=== PATIENT | male | born 1960 | race Caucasian/White ===

== ENCOUNTER 2021-06-08 14:06 | Outpatient (CLI) | payer OTHER, SELFPAY ==
--- NOTE | ~2021-06-08 | US_ITS ---
EXAMINATION: US renal BI DATE: 06/08/2021 15:15 INDICATION: Stage II chronic kidney disease TECHNIQUE: Multiple ultrasound grayscale images of the kidneys were obtained. COMPARISON: None. FINDINGS: The right kidney measures 11.1 x 4.6 x 6.1 cm. The left kidney measures 12.2 x 4.3 x 6.7 cm. The kidn eys demonstrate normal echogenicity. There is no hydronephrosis in either kidney. No stones identifi ed. The bladder is normal. IMPRESSION: 1. Normal kidneys without hydronephrosis. Reviewed, dictated and finalized at location B. LINE SUPERVISOR
== END 2021-06-08 14:07 | disposition home or self-care (01) ==
PROVIDERS: PCP Internal Medicine Gastroenterology; Visit Provider Internal Medicine Nephrology
DX: I12.9 Hypertensive chronic kidney disease with stage 1 through stage 4 chronic kidney disease, or unspecified chronic kidney disease (principal); N18.2 Chronic kidney disease, stage 2 (mild); E11.22 Type 2 diabetes mellitus with diabetic chronic kidney disease; E78.00 Pure hypercholesterolemia, unspecified
CPT/HCPCS: 76775

== ENCOUNTER 2021-09-11 13:49 | Outpatient (CLI) | payer OTHER, SELFPAY ==
[2021-09-11 14:44] LABS: Alanine Aminotransferase 26 U/L (4-50); Albumin Level 4.3 g/dL (3.5-5.1); Alkaline Phosphatase 54 U/L (38-126); Anion Gap 10 mmol/L (8-16); Aspartate Amino Transferase 28 U/L (17-59); Bilirubin,Total 0.5 mg/dL (0.2-1.3); Blood Urea Nitrogen 12 mg/dL (9-20); Calcium 8.7 mg/dL (8.4-10.2); Carbon Dioxide 23 mmol/L (22-30); Chloride 102 mmol/L (98-107); Cholesterol 229 mg/dL (0-200); Estimated Glomerular Filt Rate > 60; Glucose 119 mg/dL (65-110); HDL Direct 37 mg/dL; Sodium 135 mmol/L (137-145); Triglycerides 261 mg/dL (<150)
[2021-09-11 14:55] LABS: LDL Cholesterol Direct 145 mg/dL
[2021-09-11 15:09] LABS: Creatinine Urine 135.4 mg/dL
[2021-09-11 15:24] LABS: Free T4 Free Thyroxine 0.91 ng/mL (0.78-2.19)
[2021-09-11 15:46] LABS: Microalbumin Urine Random > 1140.0 mg/L (0-16.7)
[2021-09-11 16:08] LABS: Hemoglobin A1C 5.9 % (<5.7)
== END 2021-09-11 13:50 | disposition home or self-care (01) ==
LOC: ANHLAB 13:52
PROVIDERS: PCP Internal Medicine Gastroenterology; Visit Provider Internal Medicine Endocrinology, Diabetes & Metabolism
DX: E11.65 Type 2 diabetes mellitus with hyperglycemia (principal); E78.5 Hyperlipidemia, unspecified
CPT/HCPCS: 36415; 80053; 80061; 82043; 83036; 84439; 84443

== ENCOUNTER 2022-02-27 15:06 | Emergency (ER) | payer OTHER, SELFPAY ==
[2022-02-27 15:17] VITALS: BP 126/82; PULSE 69; RESP 16; TEMP 36.3; O2SAT 99
[2022-02-27 15:19] VITALS: BP 126/82; PULSE 69; RESP 16; TEMP 36.3; O2SAT 99
--- NOTE | 2022-02-27 15:28 | ED.SKABFB ---
HPI - Skin/Abscess/Foreign Bdy General Chief complaint: Skin/Abscess/Foreign Body Stated complaint: rash Time Seen by Provider: 02/27/22 15:25 Source: patient Mode of arrival: ambulatory Limitations: no limitations History of Present Illness HPI narrative: Mr. Dixon is a 61-year-old male patient presenting to the clinic today with complaints of a rash to the left side of his lower abdomen. He reports that the rash that is itchy and wiped out. He denies any pain or discomfort at this time Related Data Home Medications Medication Instructions Recorded Confirmed amlodipine 5 mg tablet mg 02/27/22 aspirin 81 mg chewable tablet 02/27/22 dapagliflozin 10 mg tablet mg 02/27/22 (Farxiga) ergocalciferol (vitamin D2) 1,250 02/27/22 mcg (50,000 unit) capsule fenofibrate 160 mg tablet mg 02/27/22 liraglutide 0.6 mg/0.1 mL (18 mg/3 mg subcut 02/27/22 mL) subcutaneous pen injector (VC VISIONtoza 3-Fred) metformin 500 mg tablet,extended mg PO 02/27/22 release 24 hr rosuvastatin 20 mg tablet mg 02/27/22 sertraline 100 mg tablet mg 02/27/22 valsartan 320 mg tablet mg 02/27/22 Allergies Allergy/AdvReac Type Severity Reaction Status Date / Time No Known Allergies Allergy Mild Verified 02/27/22 15:18 Review of Systems Review of Systems: Pertinent positives per HPI. Patient denies any fever, chills, headache, visual changes, dizziness, cough, runny nose, sore throat, shortness of breath, chest pain, palpitations, nausea, vomiting, diarrhea, constipation, abdominal pain, or any urinary issues. [facility] Family History Family History Grandparent Hypertension Family history of heart disease in male family member before age 55 Mother Hypertension Family history of diabetes mellitus in first degree relative Father Family history of diabetes mellitus in first degree relative Social History Social History Smoking status: Never smoker Alcohol intake: never Comments At the time of my signature, I reviewed and agree with the nursing past medical, surgical, social, and family history. There is no relevant family history pertinent to the patient complaint. Exam Narrative: General: Well-developed, well nourished, in no apparent distress Head: Normocephalic, atraumatic. Cardio: Regular rate and rhythm, s1 and s2 normal, no murmur appreciated. Resp: Clear to auscultation bilaterally, no rhonchi, rales, wheezing or rubs. Integumentary: [place], warm, and dry, intact without lesion, red whelps itchy rash in the shape of his belt Course Course Emergency Course: Portions of this record may have been created with voice recognition software. Level of Care: Express Care Visit Vital Signs Vital signs: Vital Signs Temperature 36.3 C L 02/27/22 15:17 Pulse Rate 69 02/27/22 15:17 Respiratory Rate 16 02/27/22 15:17 Blood Pressure 126/82 02/27/22 15:17 Pulse Oximetry 99 02/27/22 15:17 Oxygen Delivery Room Air 02/27/22 15:17 Temperature 36.3 C L 02/27/22 15:19 Pulse Rate 69 02/27/22 15:19 Respiratory Rate 16 02/27/22 15:19 Blood Pressure 126/82 02/27/22 15:19 Pulse Oximetry 99 02/27/22 15:19 Oxygen Delivery Room Air 02/27/22 15:19 Vital signs reviewed MDM - Skin/Abscess/Foreign Bdy MDM Narrative Medical decision making narrative: At the time of visit patient is resting comfortably on the exam table. I suspect patient has contact dermatitis. Discussed supportive measures using Benadryl and hydrocortisone cream and patient agrees with the treatment plan and voiced understanding of discharge instructions. Differential Diagnosis Differential diagnosis: Likely abscess of skin or subcutaneous tissue, herpes zoster, eczema and contact dermatitis Discharge Plan Discharge Clinical Impression: Contact dermatitis Patient Disposition: Home, Self-Care
== END 2022-02-27 15:36 | disposition home or self-care (01) ==
PROVIDERS: Emergency Provider Nurse Practitioner Family; PCP Physician Assistant
DX: L25.9 Unspecified contact dermatitis, unspecified cause (principal); Z79.82 Long term (current) use of aspirin
CPT/HCPCS: 99211; G0463

== ENCOUNTER 2022-03-08 15:07 | Emergency (ER) | payer OTHER, SELFPAY ==
[2022-03-08 15:16] VITALS: BP 103/83; PULSE 64; RESP 16; TEMP 36.6; O2SAT 98
--- NOTE | 2022-03-08 15:23 | ED.SKABFB ---
HPI - Skin/Abscess/Foreign Bdy General Chief complaint: Skin/Abscess/Foreign Body Stated complaint: Right Arm Pain Time Seen by Provider: 03/08/22 15:23 Source: patient, RN notes reviewed and old records reviewed Mode of arrival: ambulatory Limitations: no limitations History of Present Illness HPI narrative: 61-year-old male presents to the [facility] with right arm discomfort after receiving his tetanus shot on 04 March, 4 days ago. Was concerned that he was having an allergic reaction. Related Data Home Medications Medication Instructions Recorded Confirmed amlodipine 5 mg tablet mg 02/27/22 aspirin 81 mg chewable tablet 02/27/22 dapagliflozin 10 mg tablet mg 02/27/22 (Farxiga) ergocalciferol (vitamin D2) 1,250 02/27/22 mcg (50,000 unit) capsule fenofibrate 160 mg tablet mg 02/27/22 liraglutide 0.6 mg/0.1 mL (18 mg/3 mg subcut 02/27/22 mL) subcutaneous pen injector (Victoza 3-Fred) metformin 500 mg tablet,extended mg PO 02/27/22 release 24 hr rosuvastatin 20 mg tablet mg 02/27/22 sertraline 100 mg tablet mg 02/27/22 valsartan 320 mg tablet mg 02/27/22 Allergies Allergy/AdvReac Type Severity Reaction Status Date / Time No Known Allergies Allergy Mild Verified 02/27/22 15:18 Review of Systems Review of Systems: All systems reviewed & are unremarkable except as noted in HPI and below Constitutional: Constitutional: Reports no additional constitutional complaints, Denies chills and Denies fever(s) Eyes: Eyes: Reports no additional eye complaints ENT: Reports system reviewed and no additional complaints, except as documented Cardiovascular: Cardiovascular: Reports no additional cardiovascular complaints Respiratory: Respiratory: Reports no additional respiratory complaints Gastrointestinal: Gastrointestinal: Reports no additional gastrointestinal complaints Musculoskeletal: Musculoskeletal: Reports as per HPI Integumentary/Breasts: Skin/Breast: Reports system reviewed and no additional complaints, except as docu Neurologic: Reports system reviewed and no additional complaints, except as documented Psychiatric: Psychiatric: Reports no additional psychiatric complaints Allergic/Immunologic: Allergic/Immunologic: Reports no additional allergic/immunologic complaints PMFSH Family History Family History Grandparent Hypertension Family history of heart disease in male family member before age 55 Mother Hypertension Family history of diabetes mellitus in first degree relative Father Family history of diabetes mellitus in first degree relative Social History Social History Smoking status: Never smoker Alcohol intake: never Comments At the time of my signature, I reviewed and agree with the nursing past medical, surgical, social, and family history. There is no relevant family history pertinent to the patient complaint. Exam Const: General: healthy appearing, no acute distress, alert and well nourished Nutritional Appearance: well nourished Orientation/consciousness: patient oriented x3 Limitations: no limitations HENMT: Head: normal to inspection Ears: external ears normal Eyes: General: appearance normal, both eyes and all related structures Pupils: Equal, round and reactive pupils present Neck: Neck: normal visual inspection, no lymphadenopathy and no meningeal signs Chest: Chest palpation & inspection: normal inspection of the chest Resp: Effort & Inspection: normal respiratory effort and no use of accessory muscles Auscultation: clear to auscultation bilaterally, no crackles, no rales, no rhonchi and no wheezes Cardio: Rate: regular rate Rhythm: regular rhythm Skin: General skin exam: normal color Rashes: no rashes Wounds: no wounds Neuro: General: patient oriented x3, moves all extremities, no meningeal signs and no focal motor deficits C
== END 2022-03-08 15:36 | disposition home or self-care (01) ==
PROVIDERS: Emergency Provider Nurse Practitioner; PCP Physician Assistant
DX: Z04.89 Encounter for examination and observation for other specified reasons (principal); E78.00 Pure hypercholesterolemia, unspecified; I10 Essential (primary) hypertension; E11.9 Type 2 diabetes mellitus without complications
CPT/HCPCS: 99211; G0463

== ENCOUNTER 2022-03-19 12:08 | Outpatient (CLI) | payer OTHER, SELFPAY ==
--- NOTE | ~2022-03-19 | XR_ITS ---
EXAM: XR_CERV2-3V_CR DATE: 03/19/2022 12:29 HISTORY: PAIN IN RT HIP JOINT, NECK PAIN . COMPARISON: 04/23/2007. FINDINGS: Craniocervical association and atlantoaxial joint are aligned. No prevertebral soft tissue swelling. Vertebral bodies are aligned. Vertebral body heights are maintained. Mild C4-5 and moderat e C5-6 and C6-7 disc space narrowing and marginal osteophytosis. Multilevel mild facet sclerosis and hypertrophy. IMPRESSION: Mild and moderate degenerative disc disease in the mid and lower cervical spine. Multilev el mild facet arthropathy. Reviewed, dictated and finalized at location K. IMPRESSION: Mild and moderate degenerative disc disease in the mid and lower ce rvical spine. Multilevel mild facet arthropathy.
--- NOTE | ~2022-03-19 | XR_ITS ---
EXAMINATION: XR hip RT min 2V DATE: 03/19/2022 12:29 INDICATION: Right hip pain. TECHNIQUE: 2 views of right hip were obtained. COMPARISON: None. FINDINGS: Bone alignment is normal. No fracture. There is moderate right hip osteoarthritis. IMPRESSION: 1. Moderate right hip osteoarthritis. Reviewed, dictated and finalized at location A.
== END 2022-03-19 12:09 | disposition home or self-care (01) ==
PROVIDERS: PCP Physician Assistant; Visit Provider Physician Assistant
DX: M50.30 Other cervical disc degeneration, unspecified cervical region (principal); M16.11 Unilateral primary osteoarthritis, right hip
CPT/HCPCS: 72040; 73502

== ENCOUNTER 2022-04-11 01:30 | Day surgery (SDC) | payer OTHER, SELFPAY ==
[2022-04-05 14:19] VITALS: BMI 35.9
--- NOTE | 2022-04-10 14:45 | PM.HPGS ---
History of Present Illness History of Present Illness Consent: Risks, benefits, and alternatives have been discussed and questions answered. Patient agrees to proceed with procedure. Chief complaint: dysphagia, rectal bleeding Narrative: Vladimir José is a 62 year old male Referred for investigation of dysphagia. He has had the sensation of meat and breads getting caught in the area of the suprasternal notch. This has been going on for least a year, maybe longer, and now occurs once or twice a weekDrinking water may help the past. He denies weight loss. He also has seen blood in his stools recently. is generally bright red. This has been going on for a year or 2. He had had a digital rectal exam that was said to be normal. Review of Systems Review of Systems: All systems reviewed & are unremarkable except as noted in HPI and below PMFSH Past Medical History Medical History BRBPR (bright red blood per rectum) GERD (gastroesophageal reflux disease) Hypertension Obesity (BMI 30-39.9) Family History Family History Grandparent Hypertension Family history of heart disease in male family member before age 55 Mother Hypertension Family history of diabetes mellitus in first degree relative Father Family history of diabetes mellitus in first degree relative Social History Social History Smoking status: Never smoker Alcohol intake: never Living arrangements: alone Spiritual care concerns: No Meds Home Medications and Allergies Home Medications Medication Instructions Recorded Confirmed Type amlodipine 5 mg tablet 5 mg PO DAILY 02/27/22 04/05/22 History aspirin 81 mg chewable tablet 81 mg PO DAILY 02/27/22 04/05/22 History dapagliflozin 10 mg tablet 10 mg PO DAILY 02/27/22 04/05/22 History (Farxiga) ergocalciferol (vitamin D2) 1,250 50,000 unit PO DAILY 02/27/22 04/05/22 History mcg (50,000 unit) capsule fenofibrate 160 mg tablet 160 mg PO DAILY 02/27/22 04/05/22 History liraglutide 0.6 mg/0.1 mL (18 mg/3 0.6 mg subcut DAILY 02/27/22 04/05/22 History mL) subcutaneous pen injector (Victoza 3-Fred) metformin 500 mg tablet,extended 500 mg PO DAILY 02/27/22 04/05/22 History release 24 hr rosuvastatin 20 mg tablet 20 mg PO DAILY 02/27/22 04/11/22 History sertraline 100 mg tablet 200 mg PO DAILY 02/27/22 04/05/22 History valsartan 320 mg tablet 320 mg PO DAILY 02/27/22 04/05/22 History omeprazole 40 mg capsule,delayed 40 mg PO DAILY #30 caps 03/21/22 04/05/22 Rx release bupropion HCl 150 mg tablet,12 hr 150 mg PO BID 04/05/22 04/05/22 History sustained-release Allergies Allergy/AdvReac Type Severity Reaction Status Date / Time No Known Allergies Allergy Mild Verified 04/11/22 11:06 Exam Const: General: alert Orientation/consciousness: patient oriented x3 Resp: Auscultation: clear to auscultation bilaterally Cardio: Rhythm: regular rhythm GI: GI Palp: Yes Soft to palpation and No Tenderness to palpation present (GI) Neuro: General: patient oriented x3 Assessment and Plan Assessment and plan (1) Dysphagia: Code(s): R13.10 - Dysphagia, unspecified Status: Acute Assessment and Plan: EGD with possible biopsy or dilatation or cautery. (2) Blood in stool: Code(s): K92.1 - Melena Status: Acute Assessment and Plan: Colonoscopy with possible biopsy or polypectomy or cautery or injection of substances.
[2022-04-11 11:07] VITALS: BP 143/91; PULSE 60; RESP 20; TEMP 36.7; O2SAT 98
[2022-04-11] MEDS: LACTATED RINGERS 1,000 ML 150 ML IV CONT (11:18)
--- NOTE | 2022-04-11 11:30 | WPDANESEPPF ---
Anes - Initial Pre Proc Eval Procedure: Operation Date: 04/11/22 12:30 Proposed Procedures p Esophagogastroduodenoscopy & Colonoscopy - Francisco Javier Hankins MD Date/Time: 04/11/22 11:30 Surgeon: Francisco Javier Hankins MD Pre Op Diagnosis: dysphagia, rectal bleeding Patient Data Age: 62 Gender: M Height: 1.73 m Weight: 106.2 kg Last Vital Signs Temp 98.0 F 04/11/22 11:07 Pulse 60 04/11/22 11:07 Resp 20 04/11/22 11:07 BP 143/91 H 04/11/22 11:07 Pulse Ox 98 04/11/22 11:07 O2 Del Method Room Air 04/11/22 11:07 Allergies Allergy/AdvReac Type Severity Reaction Status Date / Time No Known Allergies Allergy Mild Verified 04/11/22 11:06 Home Medications Medication Instructions Recorded Confirmed Type amlodipine 5 mg tablet 5 mg PO DAILY 02/27/22 04/05/22 History aspirin 81 mg chewable tablet 81 mg PO DAILY 02/27/22 04/05/22 History dapagliflozin 10 mg tablet 10 mg PO DAILY 02/27/22 04/05/22 History (Farxiga) ergocalciferol (vitamin D2) 1,250 50,000 unit PO DAILY 02/27/22 04/05/22 History mcg (50,000 unit) capsule fenofibrate 160 mg tablet 160 mg PO DAILY 02/27/22 04/05/22 History liraglutide 0.6 mg/0.1 mL (18 mg/3 0.6 mg subcut DAILY 02/27/22 04/05/22 History mL) subcutaneous pen injector (Victoza 3-Fred) metformin 500 mg tablet,extended 500 mg PO DAILY 02/27/22 04/05/22 History release 24 hr rosuvastatin 20 mg tablet mg 02/27/22 03/21/22 History sertraline 100 mg tablet 200 mg PO DAILY 02/27/22 04/05/22 History valsartan 320 mg tablet 320 mg PO DAILY 02/27/22 04/05/22 History omeprazole 40 mg capsule,delayed 40 mg PO DAILY #30 caps 03/21/22 04/05/22 Rx release bupropion HCl 150 mg tablet,12 hr 150 mg PO BID 04/05/22 04/05/22 History sustained-release Patient hx anesthesia problems: none Family hx anesthesia problems: none Results Review: All pre-operative results and documents have been reviewed as part of the pre-operative evaluation. [facility] Past Medical History Medical History (Updated 04/10/22 @ 14:46 by Francisco Javier Hankins MD) BRBPR (bright red blood per rectum) GERD (gastroesophageal reflux disease) Hypertension Obesity (BMI 30-39.9) Family History Family History Grandparent Hypertension Family history of heart disease in male family member before age 55 Mother Hypertension Family history of diabetes mellitus in first degree relative Father Family history of diabetes mellitus in first degree relative Social History Social History Smoking status: Never smoker Alcohol intake: never Living arrangements: alone Spiritual care concerns: No Anes - Eval Final PreProcedure Day of Procedure 04/11/22 11:30 Patient weight: obese Heart: regular rate and rhythm Lungs: clear to auscultation Airway: Mallampati scale class II Neurological: alert and oriented Last oral intake: >/= 8 hours ASA classification: III Emergent: no Anesthetic plan: proceed Anesthesia type and monitoring: general GIVS and standard monitoring Results Review: All pre-operative results and documents have been reviewed as part of the pre-operative evaluation. Informed Consent: The patient's anesthetic plan and its attendant risks and benefits were discussed with the patient/family/POA. Questions were solicited and answers provided to the satisfaction of the patient/family/POA.
[2022-04-11 11:32] LABS: Glucose Point of Care 131 mg/dl (65-105)
[2022-04-11] MEDS: BENZOCAINE (*SP) 60 ML SPRAY CAN (HURRICAINE) 1 SPRAY MUCOUS MEM (12:12)
--- NOTE | 2022-04-11 12:29 | SUR.OPER ---
EGD end 1221 COLONOSCOPY start 1231
[2022-04-11 12:48] VITALS: BP 112/75; PULSE 66; RESP 17; O2SAT 99
[2022-04-11 12:58] VITALS: BP 134/91; PULSE 64; RESP 14; O2SAT 98
[2022-04-11 13:08] VITALS: BP 141/85; PULSE 65; RESP 16; O2SAT 96
--- NOTE | 2022-04-11 13:20 | SUR.PHASEII ---
pt awaiting med car for transportation. ETA 3pm. call light within reach.
--- NOTE | 2022-04-11 13:51 | SUR.PHASEII ---
pt states his sister is now going to pick him up in the next hour.
== END 2022-04-11 14:23 | disposition home or self-care (01) ==
PROVIDERS: PCP Physician Assistant; Visit Provider Internal Medicine Gastroenterology
PROC: 0DJ08ZZ Inspection of Upper Intestinal Tract, Via Natural or Artificial Opening Endoscopic (ICD-10-PCS; CPT 43235; principal; 2022-04-11 12:30)
DX: K62.5 Hemorrhage of anus and rectum (principal); K64.8 Other hemorrhoids; K22.2 Esophageal obstruction; K20.0 Eosinophilic esophagitis; Z79.82 Long term (current) use of aspirin; Z79.899 Other long term (current) drug therapy; Z79.84 Long term (current) use of oral hypoglycemic drugs; I10 Essential (primary) hypertension; E66.9 Obesity, unspecified; Z68.35 Body mass index [BMI] 35.0-35.9, adult
CPT/HCPCS: 45378; 43239; 43249; 82948; 87081; 88305; C1726; J2704; J7120

== ENCOUNTER 2022-06-11 09:48 | Outpatient (CLI) | payer OTHER, SELFPAY ==
[2022-06-11 10:29] LABS: Hematocrit 41.4 % (42.0-52.0); Hemoglobin 14.3 g/dL (14.0-18.0); Mean Corpuscular HGB Conc 34.5 g/dl (32-36); Mean Corpuscular Hemoglobin 28.9 pg (26-34); Mean Corpuscular Volume 83.8 fl (80-100); Mean Platelet Volume 10.4 fl (7.4-10.4); Platelet Count Result 287 k/mm3 (150-375); Red Blood Count 4.94 M/mm3 (4.6-6.20); Red Cell Distribution Width 13.2 % (11.5-14.5); White Blood Count 11.5 K/mm3 (4.5-10.0)
[2022-06-11 10:36] LABS: Add Urine Microscopic? YES; Appearance Urine Clear (Clear); Bilirubin Urine Negative (Negative); Blood Urine Negative (Negative); Color Urine Yellow (Yellow); Glucose Urine UA 3+ mg/dL (Negative); Ketones Urine Negative (Negative); Leukocyte Esterase Ur Negative LEU/UL (NEGATIVE); Nitrate Urine Negative (Negative); Protein Urine 1+ mg/dL (Negative); Urobilinogen Urine 0.2 mg/dL (<2.0)
[2022-06-11 10:38] LABS: Albumin Level 4.6 g/dL (3.5-5.1); Anion Gap 10 mmol/L (8-16); Blood Urea Nitrogen 24 mg/dL (9-20); Calcium 9.2 mg/dL (8.4-10.2); Carbon Dioxide 24 mmol/L (22-30); Chloride 105 mmol/L (98-107); Estimated Glomerular Filt Rate 52; Glucose 115 mg/dL (65-110); Magnesium 1.8 mg/dL (1.6-2.3); Phosphorus 3.7 mg/dL (2.5-4.5); Potassium 3.7 mmol/L (3.4-5.0); Sodium 139 mmol/L (137-145)
[2022-06-11 10:40] LABS: Mucus Urine Rare /lpf; RBC Urine 0-2 /hpf (0-2); Squamous Epithelial Cell Urine Rare /hpf (Few); WBC Urine 0-3 /hpf (0-3)
[2022-06-11 11:25] LABS: Vitamin D 25 Hydroxy 27.3 ng/mL
[2022-06-11 11:32] LABS: Creatinine Urine 113.6 mg/dL; Total Protein Urine Random 50 mg/dL; Ur Ttl Prot Creatinine Ratio 0.44 mg/mg (0-0.20)
[2022-06-11 12:14] LABS: MALB Creatinine Ratio 251.5 mg/g (0-30); Microalbumin Urine Random 285.7 mg/L (0-16.7)
== END 2022-06-11 09:49 | disposition home or self-care (01) ==
LOC: ANHLAB 09:54
PROVIDERS: PCP Physician Assistant; Visit Provider Internal Medicine Nephrology
DX: R80.1 Persistent proteinuria, unspecified (principal); I12.9 Hypertensive chronic kidney disease with stage 1 through stage 4 chronic kidney disease, or unspecified chronic kidney disease; N18.2 Chronic kidney disease, stage 2 (mild); E11.22 Type 2 diabetes mellitus with diabetic chronic kidney disease; E78.00 Pure hypercholesterolemia, unspecified
CPT/HCPCS: 36415; 80069; 81001; 82043; 82306; 82570; 83735; 83970; 84156; 85027

== ENCOUNTER 2022-06-28 12:30 | Outpatient (RCR) | payer OTHER, SELFPAY ==
--- NOTE | 2022-06-14 10:08 | PTOPEVAL1 ---
Assessment and note entered by Audra Lindsay DPT Evaluation Information Assessment Status Evaluation Subjective Information Pt reports right hip pain. Having trouble putting his shoes on. Highest pain recently 5/10 and lowest 1/10. Walking a prolonged distance will increase pain as well as lifting his leg like to get dressed. Has stairs at his apartment but has an option to use an elevator. Had an x-ray which showed arthritis. No appointment scheduled to return to the MD Reported Pain Level Pain Score 1: Self Report Assessment PT Clinical Summary The patient is presenting to skilled therapy with right hip pain and a diagnosis of osteoarthritis. He presents with strength impairments which are contributing to his pain with activities like prolonged walking and lifting his leg up for dressing. He will benefit from therapy to address these impairments and safely reduce pain and dysfunction. Plan of Care Interventions Electrical Stimulation,Hot Pack/Cold Pack,Manual Therapy,Neuro Re-education,Patient/Caregiver Education,Therapeutic Activities,Therapeutic Exercise,Self-Care/Home Management PT Services Indicated Yes Treatment Frequency and 2 times a week for 3 weeks Duration These treatments will address the objective and functional deficits as defined above. The patient will be advanced safely and appropriately in order for the patient to progress towards his/her prior level of function. Additional exercises will be introduced and as well as a comprehensive home exercise program upon discharge, if needed, ?to ensure carryover of functional gains achieved in the clinic. This treatment plan has been reviewed and agreement upon by the patient.
--- NOTE | 2022-07-01 14:30 | PCPTNOTE ---
This treatment is being continued on visit number [id number]. Please see documentation on both accounts to view progress. Completed interventions, outcomes, and problems have been marked as Inactive to facilitate the copying of the Care plan routine for recurring accounts.
== END 2022-07-01 13:18 | disposition home or self-care (01) ==
LOC: ANHPT 12:30
PROVIDERS: PCP Physician Assistant; Visit Provider Physician Assistant
DX: M25.551 Pain in right hip (principal)
CPT/HCPCS: 97110; 97161; 97530; 99199

== ENCOUNTER 2022-07-04 11:00 | Outpatient (RCR) | payer OTHER, SELFPAY ==
--- NOTE | 2022-07-01 14:31 | PCPTNOTE ---
The treatment documented on this account is a continuation of the treatment documented on visit number [id number]. Please see documentation on both accounts to view progress. The Plan of Care has been transitioned and updated within the new V#. I have addressed and agree with the discipline specific Problems, Interventions, and Goals for the current certification period. Completed interventions, outcomes, and problems have been marked as Inactive to facilitate the copying of the Care plan routine for recurring accounts.
--- NOTE | 2022-07-04 11:36 | PTOPDC ---
Assessment and note entered by Audra Lindsay DPT Evaluation Information Assessment Status Discharge Subjective Information Pt reports things are going very well with therapy . He can now cross his right leg over his left. Highest pain in the last week 2/10. Lowest 0/10. Still has to modify a little bit to put his shoe on that foot. Reported Pain Level Pain Score 2: Self Report Assessment PT Clinical Summary The patient has made good progress in therapy. He reports decreased pain overall and has noticed improvements in his range of motion, he can cross his right leg now. He demonstrates improved LE strength and walking speed as well. Due to his progress, plan for discharge at this time. He has been educated to continue his HEP and follow up with PT and/or MD as needed. Plan of Care PT Services Indicated No
== END 2022-09-16 09:08 | disposition home or self-care (01) ==
LOC: ANHPT 11:00
PROVIDERS: PCP Physician Assistant; Visit Provider Physician Assistant
DX: M25.551 Pain in right hip (principal)
CPT/HCPCS: 97110; 97530

== ENCOUNTER 2024-05-06 11:06 | Emergency (ER) | payer SELFPAY ==
--- NOTE | 2024-05-06 11:12 | ED.GENADULT ---
HPI - General Adult General Chief complaint: Skin/Abscess/Foreign Body Stated complaint: nodules on neck Time Seen by Provider: 05/06/24 11:25 Source: patient Mode of arrival: ambulatory Limitations: no limitations History of Present Illness HPI narrative: Vladimir is a 64-year-old male patient presenting to the clinic today with complaints of possible swollen nodes in his neck. Reports he has 2 areas in the anterior neck and 1 to the left cheek that are itchy and swollen. He states he woke up like this this morning. Related Data Home Medications Medication Instructions Recorded Confirmed amlodipine 5 mg tablet 5 mg PO DAILY 02/27/22 05/06/24 aspirin 81 mg chewable tablet 81 mg PO DAILY 02/27/22 05/06/24 dapagliflozin propanediol 10 mg 10 mg PO DAILY 02/27/22 05/06/24 tablet (Farxiga) ergocalciferol (vitamin D2) 1,250 50,000 unit PO DAILY 02/27/22 05/06/24 mcg (50,000 unit) capsule fenofibrate 160 mg tablet 160 mg PO DAILY 02/27/22 05/06/24 liraglutide 0.6 mg/0.1 mL (18 mg/3 0.6 mg subcut DAILY 02/27/22 05/06/24 mL) subcutaneous pen injector (Victoza 3-Fred) metformin 500 mg tablet,extended 500 mg PO DAILY 02/27/22 05/06/24 release 24 hr rosuvastatin 20 mg tablet 20 mg PO DAILY 02/27/22 05/06/24 sertraline 100 mg tablet 200 mg PO DAILY 02/27/22 05/06/24 valsartan 320 mg tablet 320 mg PO DAILY 02/27/22 05/06/24 bupropion HCl 150 mg tablet,12 hr 150 mg PO BID 04/05/22 05/06/24 sustained-release Allergies Allergy/AdvReac Type Severity Reaction Status Date / Time No Known Allergies Allergy Mild Verified 05/06/24 11:19 Review of Systems Review of Systems: Pertinent positives per HPI. Patient denies any fever, chills, rash, headache, visual changes, dizziness, cough, runny nose, sore throat, shortness of breath, chest pain, palpitations, nausea, vomiting, diarrhea, constipation, abdominal pain, or any urinary issues. [facility] Past Medical History Medical History BRBPR (bright red blood per rectum) GERD (gastroesophageal reflux disease) Hypertension Obesity (BMI 30-39.9) Family History Family History Grandparent Hypertension Family history of heart disease in male family member before age 55 Mother Hypertension Family history of diabetes mellitus in first degree relative Father Family history of diabetes mellitus in first degree relative Social History Social History Smoking status: Never smoker Alcohol intake: never Living arrangements: alone Spiritual care concerns: No Comments At the time of my signature, I reviewed and agree with the nursing past medical, surgical, social, and family history. There is no relevant family history pertinent to the patient complaint. Exam Narrative: General: Well-developed, well nourished, in no apparent distress Head: Normocephalic, atraumatic. Cardio: Regular rate and rhythm, s1 and s2 normal, no murmur appreciated. Resp: Clear to auscultation bilaterally, no rhonchi, rales, wheezing or rubs. Integumentary: [place], warm, and dry, red, raised, indurated, firm, mildly tender and itchy bumps to the skin of the anterior neck x2 and then 1 bump to the left cheek. Bumps measure approx 1 cm Course Course Emergency Course: Portions of this record may have been created with voice recognition software. Level of Care: Express Care Visit Vital Signs Vital signs: Vital signs reviewed Medical Decision Making MDM Narrative Medical decision making narrative: At the time of visit patient is resting comfortably on the exam table. Patient appears to be nontoxic. Plan: I suspect patient likely has insect bites to the anterior neck and left cheek. Will cover for any secondary infection and give him doxycycline with triamcinolone cream to place on the areas. May take Benadryl as needed for itching. Supportive measures were discussed with the patient and they voiced understanding discharge instructions and agrees to treatment plan. Return precautions reviewed Differential Diagnosis Differential Diagnosis: Rash, insect bites, cellulitis, skin infection, dermatitis Discharge Plan Discharge Clinical Impression: Insect bite Qualifiers: Encounter type: initial encounter Site of insect bite: unspecified part of neck Qualified Code(s): S10.96XA - Insect bite of unspecified part of neck, initial encounter Patient Disposition: Home, Self-Care Condition: Stable Instructions: Antibiotic Form, Insect Bite or Sting (ED) Additional Instructions: Apply triamcinolone cream as directed Take doxycycline as prescribed Avoid scratching as this can cause a secondary infection May take benadryl 25-50mg every 6 hours as needed for itching. Follow up with your PCP in 3-5 days if symptoms persist or sooner if they worsen Go to the Emergency Room if symptoms worsen- fever, rash spreading with treatment, shortness of breath, tongue swelling, drooling, or chest pain Prescriptions: New triamcinolone acetonide 0.1 % cream 1 applic topical BID 7 Days Qty: 30 0RF doxycycline monohydrate 100 mg capsule 100 mg PO BID 7 Days Qty: 14 0RF No Action sertraline 100 mg tablet 200 mg PO DAILY amlodipine 5 mg tablet 5 mg PO DAILY valsartan 320 mg tablet 320 mg PO DAILY aspirin 81 mg tablet,chewable 81 mg PO DAILY ergocalciferol (vitamin D2) 1,250 mcg (50,000 unit) capsule 50,000 unit PO DAILY metformin 500 mg tablet extended release 24 hr 500 mg PO DAILY rosuvastatin 20 mg tablet 20 mg PO DAILY fenofibrate 160 mg tablet 160 mg PO DAILY liraglutide [Victoza 3-Fred] 0.6 mg/0.1 mL (18 mg/3 mL) pen injector 0.6 mg SUBCUT DAILY dapagliflozin propanediol [Farxiga] 10 mg tablet 10 mg PO DAILY fluticasone propionate [Flovent HFA] 220 mcg/actuation HFA aerosol inhaler 1 puff inhalation BID 30 Days Qty: 12 3RF Rx Instructions: Take as directed bupropion HCl 150 mg tablet sustained-release 12 hr 150 mg PO BID omeprazole 40 mg capsule,delayed release(DR/EC) See Rx Instructions .ROUTE .COMPLEX Qty: 90 3RF Dose Instruction: TAKE 1 CAPSULE BY MOUTH EVERY DAY Rx Instructions: TAKE 1 CAPSULE BY MOUTH EVERY DAY Follow-up/Referrals: Flora,KATLIN Jain [Primary Care Provider] - Time of Disposition: 11:29 Quality NIHSS Nursing Documentation ED NIHSS nursing documentation: reviewed/agree
[2024-05-06 11:16] VITALS: BP 111/82; PULSE 59; RESP 16; TEMP 36; O2SAT 100
[2024-05-06 11:20] VITALS: BP 111/82; PULSE 59; RESP 16; TEMP 36; O2SAT 100
== END 2024-05-06 11:34 | disposition home or self-care (01) ==
PROVIDERS: Emergency Provider Nurse Practitioner Family; PCP Physician Assistant
DX: S10.96XA Insect bite of unspecified part of neck, initial encounter (principal); W57.XXXA Bitten or stung by nonvenomous insect and other nonvenomous arthropods, initial encounter; K21.9 Gastro-esophageal reflux disease without esophagitis; I10 Essential (primary) hypertension; E66.9 Obesity, unspecified; Z79.82 Long term (current) use of aspirin; Z68.32 Body mass index [BMI] 32.0-32.9, adult
CPT/HCPCS: 99213; G0463

== ENCOUNTER 2025-02-19 15:18 | Emergency (ER) | payer OTHER, SELFPAY ==
--- OUTSIDE RECORDS SUMMARY | 2003-07-17 19:00 | XMS_ITS | Continuity of Care Document ---
Author Organization [facility] Address [address] [place] [address] [place] [address] Phone Care Team Providers Care Modeling Agent Name Role Phone [facility] Unavailable Unavail able Selena, Khloe Unavailable Unavailable Advance Directives Directive Yes / No Effective Date File Name No Information Encounters Encounter Description Practice Location Reason(s) For Visit Diagnoses Date Provider Providers Copied on Encounter [facility], [address], [place], [place], [id number], [place] tel:[phone] [facility] No Information 4 [facility] [address] [facility], [address], [place], [place], [id number] , [place]. tel:[phone] Consulting Provider: Khloe Walters, [address] [place] [address], [address]. tel:[phone] Family History Family Member Type Diagnosis Age At Onset No Information Payers Payer name Insurance type Covered republican ID Authoriza tion(s) No Information Social History Type Description Quantity Date Captured Comments Sex Male Smoking Status No Information Chief Complaint And Reason For Visit No Information Reason For Referral Reason For Referral No Information History Of Present Illness Encounter Date Complaint History Of Prese nt Illness No Information Functional Status Date Functional Assessmen t No Information Instructions Date Instruction Additional Infor mation No Information Assessments Type Assessment Date No Information Patient Care Teams Name Effective Dates (start - stop) Status Members No Information
--- OUTSIDE RECORDS SUMMARY | 2003-07-17 19:00 | XMS_ITS | Continuity of Care Document ---
Author Organization [facility] Address [address] [place] [address] [place] [address] Phone Care Team Providers Care It Architect Name Role Phone [facility] Unavailable Unavail able Selena, Khloe Unavailable Unavailable Advance Directives Directive Yes / No Effective Date File Name No Information Encounters Encounter Description Practice Location Reason(s) For Visit Diagnoses Date Provider Providers Copied on Encounter [facility], [address], [place], [place], [id number], [place] tel:[phone] [facility] No Information 4 [facility] [address] [facility], [address], [place], [place], [id number] , [place]. tel:[phone] Consulting Provider: Khloe Walters, [address] [place] [address], [address]. tel:[phone] Family History Family Member Type Diagnosis Age At Onset No Information Payers Payer name Insurance type Covered green party ID Authoriza tion(s) No Information Social History [...]
[2025-02-19] VITALS (12 sets, daily range): BP systolic 121–166; BP diastolic 79–103; PULSE 61–74; RESP 14–18; TEMP 37.1; O2SAT 96–100
--- NOTE | ~2025-02-19 | XR_ITS ---
EXAMINATION: XR chest 1V portable COMPARISON: No comparisons available. HISTORY: sudden onset dizziness FINDINGS: The lungs are clear, no effusion. No pneumothorax. Heart is normal size. Mediastinal and hilar contours are within normal limits. Bony thorax no acute abnormality. Miscellaneous: None Impression: No acute cardiopulmonary abnormality. Reviewed, dictated and finalized at location A. Impression: No acute cardiopulmonary abnormality.
--- NOTE | ~2025-02-19 | CT_ITS ---
EXAMINATION: CT brain wo denilson, 02/19/2025 15:20 CDT HISTORY: sudden onset dizziness-stroke alert COMPARISON: No comparisons available. Technique: Axial images obtained of the brain without contrast. One or more of the following dose reduction techniques were used: automated exposure control, adjustment of the mA and/or kV according to patient size, use of iterative reconstruction technique. Findings: No acute infarct or parenchymal hemorrhage. No abnormal mass or mass effect. No midline shift. No extra-axial fluid collections. No hydrocephalus. Mastoid air cells unremarkable. Sinuses and orbits unremarkable. No acute fracture. No significant facial or scalp soft tissue swelling evident. No radiopaque foreign body is seen. Impression: 1.No acute intracranial abnormality. Reviewed, dictated and finalized at location A. Impression: 1.No acute intracranial abnormality.
--- OUTSIDE RECORDS SUMMARY | 2025-02-19 15:20 | XMS_ITS | Clinical Summary ---
Author Organization [facility] Address [address] [facility] [place] [address] Care Team Providers Care Recycling Tech Name Role Phone Brent Dhillon MD Primary Care Provider Source Comments [facility],non-owned Affiliates and Associated Physician Practices is amultiple site organization consisting of ambulatory clinics and hospital sitesin [place], [place] and [place]. This disclosure is being madepursuant to the Care Everywhere program and may not contain all information available regarding this patient. Last updated 18.[employer] Allergies No known active allergies Medications * Be aware that medications may not be up to date on this document. Alwaysverify current medications with the patient. albuterol HFA (PROVENTIL;VENT JESSE;PROAIR) 108 (90 Base) MCG/ACT inhaler Inhale 1-2 puffs by mouth every 4 hours as needed 01/20/2017 Active buPROPion XL 24hr (WELLBUTRIN-XL) 150 MG tablet Take 1 tablet by mouth once daily 02/14/2020 Active ezetimibe (ZETIA) 10 MG tablet Take 10 mg by mouth once daily Active fenofibrate (LOFIBRA) 160 MG tablet Take 1 tablet by mouth once daily 03/09/2019 Active lisinopril-hydr oCHLOROthiazide (PRINZIDE; ZESTORETIC) 20-25 MG tablet Take 1 tablet by mouth once daily 04/15/2018 Active rosuvastatin (CRESTOR) 10 MG tablet Take 10 mg by mouth at bedtime Active sertraline (ZOLOFT) 100 MG tablet Take 200 mg by mouth once daily 01/28/2020 Active zolpidem (AMBIEN) 10 MG tablet Take 1 tablet by mouth once daily as needed 08/13/2016 Active Canagliflozin-m etFORMIN HCl ER (INVOKAMET XR) 50-1000 MG TB24 Take 1 tablet by mouth 2 times daily Active cetirizine (ZYRTEC ALLERGY) 10 MG tablet Take 10 mg by mouth once daily Active olopatadine 0.7 % (PAZEO) 0.7 % ophthalmic solution Instill 1 drop into both eyes once daily 2.5 mL 3 02/23/2020 Active azelastine (ASTELIN) 0.1 % nasal spray [place] 1 (one) spray into each nostril 2 times daily 30 mL 5 08/23/2020 Active Immunizations Immunization Administration Dates Next Due Car Loan 4U primary monovalent 12+ yr 0.3mL Pur ple cap 08/17/2020 INFLUENZA VACCINE, QUADR. 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[employer] Gender Identity Not on file Sexual Orientation Not on file Last Filed Vital Signs Vital Sign Reading Time Taken Comments Blood Pressure 118/89 08/23/2020 4:13 PM CDT Pulse 83 02/23/2020 1:29 PM CDT Temperature 36.2 C (97.1 F) 02/23/2020 1:29 PM CDT Respiratory Rate 20 02/23/2020 1:29 PM CDT Oxygen Saturation 97% 02/23/2020 1:29 PM CDT Inhaled Oxygen Concentration - - Weight 108 kg (238 lb) 08/23/2020 4:13 PM CDT Height 172.7 cm (5' 8) 08/23/2020 4:13 PM CDT Body Mass Index 36.19 08/23/2020 4:13 PM CDT Plan of Treatment Health Maintenance Due Date Last Done Comments COLOGUARD (AGES 45-75) - COL ON CA SCREENING 1962 COLON MONITORING 1962 COLONOSCOPY - COLON CA SCREENING 1962 CT COLONOGRAPHY - COLON CA SCREENING 1962 Colorectal Cancer Screening 1962 FIT - COLON CA SCREENING 1962 FLEX SIG - COLON CA SCREENING 1962 DTAP/TDAP/TD VACCINES (1 - Tdap) 1981 PNEUMOCOCCAL VACCINE 50+ (1 of 1 - PCV) 2012 ZOSTER VACCINE (1 of 2) 2012 SCREENING FOR DIABETES 02/23/2020 DEPRESSION SCREENING 06/02/2024 COVID-19 VACCINE (2 - 2024-2 6 season) 2025 08/17/2020 INFLUENZA VACCINE (#1) 2025 04/19/2018 Respiratory Syncytial Virus (RSV) Vaccine Pt: or over 60 yrs (1 - 1-dose 75+ series) 2037 HEPATITIS C SCREENING Completed 04/15/2017 HIV SCREENING Completed 04/15/2017 HEPATITIS B VACCINE Aged Out No longe r eligible based on patient's age to complete this topic HIB VACCINE Aged Out No longer eligi ble based on patient's age to complete this topic HPV VACCINE Aged Out No longer eligi ble based on patient's age to complete this topic MENINGOCOCCAL (Group B) VACC INE SHARED DECISION-MAKING Aged Out No longer eligibl e based on patient's age to complete this topic MENINGOCOCCAL GROUPS A/C/Y/W VACCINE Aged Out No longer eligible b ased on patient's age to complete this topic Insurance [facility] Care Teams Recycling Tech Relationship Specialty Start Date End Date Brent Dhillon MD [address] [place] [address] PCP - General 03/16/19
--- OUTSIDE RECORDS SUMMARY | 2025-02-19 15:20 | XMS_ITS | Clinical Summary ---
Author Organization [facility] Facility Address [address] [place] [address] Care Team Providers Care Business Information Consultant Name Role Phone Joaquina Hines PA-C Primary Care Provider Medications ergocalciferol 1.25 MG (12254 UT) capsule TAKE 1 CAPSULE (50,000 UNITS TOTAL) BY MOUTH ONCE WEEKLY 4 capsule 5 07/10/2022 Active spironolactone (ALDACTONE) 25 MG tablet TAKE ONE-HALF TABLET BY MOUTH EVERY MORNING 45 tablet 1 06/03/2023 Active Encounters Date Type Department Care Team Description 12/28/[address] [facility], [address] [address] Neri Graff, DO from Last 3 Months Social History Tobacco Use Types Packs/Day Years Used Date Smoking Tobacco: Never Assessed Sex and Gender Information Value Date Recorded Sex Assigned at Not on file Legal Sex Male 11:41 AM EST Gender Identity Not on file Sexual Orientation Not on file Last Filed Vital Signs Vital Sign Reading Time Taken Comments Blood Pressure 126/70 12/31/2022 2:43 PM CDT Pulse 70 12/31/2022 2:43 PM CDT Temperature 36.1 C (97 F) 12/31/2022 2:43 PM CDT Respiratory Rate 18 12/31/2022 2:43 PM CDT Oxygen Saturation 99% 12/31/2022 2:43 PM CDT Inhaled Oxygen Concentration - - Weight 108 kg (237 lb) 12/31/2022 2:43 PM CDT Height 172.7 cm (5' 8) 06/25/2022 3:13 PM DOUPER Body Mass Index 36.04 06/25/2022 3:13 PM DOUPER Plan of Treatment Upcoming Encounters Date Type Department Care Team (Late st Contact Info) Description 04/19/2025 2:45 PM DOUPER Office Visit [facility], [facility] [address] [place] [address] Neri Graff DO [address] [place] [address] Health Maintenance Due Date Last Done Comments Colorectal Cancer Screening: Annual FOBT 2011 Colorectal Cancer Screening: Colonoscopy 2011 Colorectal Cancer Screening: Sigmoidoscopy 2011 Pneumococcal Vaccine: 50+ Years (2 of 2 - PCV) 04/10/2021 04/10/2020 Diabetes: Ophthalmology Exam 04/18/2021 Diabetes: Pedal Pulse Checked 04/18/2021 Diabetes: Sensory Foot Exam 04/18/2021 Diabetes: Visual Foot Exam 04/18/2021 Diabetes: Hemoglobin A1C 03/26/2023 023, 07/15/2019, 04/18/2018 Influenza Vaccine (#1) 2025 2, 04/10/2020, 04/27/2019, Additional history exists Pneumococcal Vaccine: Peds (0 to 5 Years) and At-Risk Patients (6 to 49 Years) Discontinued 04/10/2020 Hepatitis B Vaccine Aged Out No longe r eligible based on patient's age to complete this topic Procedures Procedure Name Priority Date/Time Associated Diagnosis Comments HEMOGLOBIN A1C Routine 12/24/2022 10:28 AM CDT from Last 3 Months or Most Recently Relevant to Health Maintenance Results * (ABNORMAL) Hemoglobin A1c (12/24/2022 10:28 AM CDT) Hemoglobin A1C 7.3(H) <5.7 % of total Hgb [facility] Comment: For someone without known diabetes, a hemoglobin A1c value of 6.5% or greater indicates that they may have diabetes and this should be confirmed with a follow-up test. For someone with known diabetes, a value <7% indicates that their diabetes is well controlled and a value greater than or equal to 7% indicates suboptimal control. A1c targets should be individualized based on duration of diabetes, age, comorbid conditions, and other considerations. Currently, no consensus exists regarding use of hemoglobin A1c for diagnosis of diabetes for children. 12/24/2022 10:2 8 AM CDT 12/24/2022 10:31 AM CDT us Neri Graff DO LAB BLOOD ORDERABLES Final R esult [facility] from Last 3 Months or Most Recently Relevant to Health Maintenance Insurance [facility] ([id number]) Care Teams Business Information Consultant Relationship Specialty Start Date End Date Joaquina Hines PA-C [facility] [place] [address] [place] [address] PCP - General Physician Forepart [place] 12/31/22
--- NOTE | 2025-02-19 15:23 | ECG_ITS ---
Test Date: 2025-02-19 16:24:13 Measurements Intervals [place] Rate: 63 P: 38 MI: 162 QRS: 21 QRSD: 109 T: 32 QT: 412 QTc: 424 Interpretive Statements SINUS RHYTHM NORMAL ELECTROCARDIOGRAM No previous ECG available for comparison Electronically Signed On 02-20-2025 08:17:32 CDT by Orion Koehler M.D.
[2025-02-19 16:29] LABS: Hematocrit 44.4 % (42.0-52.0); Hemoglobin 14.8 g/dL (14.0-18.0); Immature Granulocyte Percent A 0.3 % (0-0.5); Lymphocytes Absolute Auto 1.95 K/mm3 (0.9-3.2); Mean Corpuscular HGB Conc 33.3 g/dl (32-36); Mean Corpuscular Hemoglobin 29.3 pg (26-34); Mean Corpuscular Volume 87.9 fl (80-100); Nucleated Red Blood Cells Absolute Auto 0.000 K/mm3 (0.0-0.012); Nucleated Red Blood Cells Perc 0.0 % (0.0-0.2); Platelet Count Result 256 k/mm3 (150-375); Red Blood Count 5.05 M/mm3 (4.6-6.20); White Blood Count 9.3 K/mm3 (4.5-10.0)
[2025-02-19 16:35] LABS: Alanine Aminotransferase 29 U/L (6-50); Albumin Level 4.5 g/dL (3.5-5.1); Alkaline Phosphatase 46 U/L (38-126); Anion Gap 10 mmol/L (4-12); Aspartate Amino Transferase 42 U/L (17-59); Bilirubin,Total 0.4 mg/dL (0.2-1.3); Blood Urea Nitrogen 29 mg/dL (9-20); Calcium 9.2 mg/dL (8.4-10.2); Carbon Dioxide 24 mmol/L (22-30); Chloride 107 mmol/L (98-107); Estimated Glomerular Filt Rate 58; Glucose 105 mg/dL (65-110); Potassium 3.5 mmol/L (3.4-5.0); Sodium 141 mmol/L (137-145); Total Protein 7.7 g/dL (6.3-8.2)
[2025-02-19 16:41] LABS: INR 1.1; Prothrombin Time 14.5 Seconds (11.1-14.7)
[2025-02-19 16:42] LABS: Partial Thromboplastin Time 29.3 Seconds (22.3-36.8)
[2025-02-19 16:47] LABS: Troponin I < 0.012 ng/mL (0.000-0.034)
--- NOTE | 2025-02-19 17:11 | ED.NEUROSD ---
HPI - Neuro Symptoms/Deficit General Chief Complaint: Suspected CVA Stated Complaint: sudden onset dizzy/balance 30 min ago Time Seen by Provider: 02/19/25 16:52 History of Present Illness HPI Narrative: 64-year-old male presents to the emergency department for evaluation after an episode of dizziness after he had been looking up. Patient was working at the [employer] and was holding the add of a tent down while was raining. Patient states he had his left hand in the air and was looking up. Patient reports after walking away from the tent he had just a few seconds of dizziness. Patient denied any focal numbness or weakness. Patient denies any prior history of DE history of CVA. Patient does have history of diabetes, hypertension, high cholesterol, chronic kidney disease. At time of evaluation patient does feel improved. Patient denies any dizziness lightheadedness. Patient states he did not eat very much today only had 2 pieces of pizza today Related Data Home Medications ?Medication ?Instructions ?Recorded ?Confirmed ?Last Taken ?Type aspirin 81 mg chewable tablet 81 mg PO DAILY 02/27/22 08/17/24 04/10/22 History fenofibrate 160 mg tablet 160 mg PO DAILY 02/27/22 08/17/24 04/10/22 History liraglutide 0.6 mg/0.1 mL (18 mg/3 0.6 mg subcut DAILY 02/27/22 08/17/24 04/10/22 History mL) subcutaneous pen injector (Victoza 3-Fred) metformin 500 mg tablet,extended 500 mg PO DAILY 02/27/22 08/17/24 04/10/22 History release 24 hr sertraline 100 mg tablet 200 mg PO DAILY 02/27/22 08/17/24 04/10/22 History valsartan 320 mg tablet 320 mg PO DAILY 02/27/22 08/17/24 04/10/22 History bupropion HCl 150 mg tablet,12 hr 150 mg PO BID 04/05/22 08/17/24 04/10/22 History sustained-release Allergies Allergy/AdvReac Type Severity Reaction Status Date / Time No Known Allergies Allergy Mild Verified 02/19/25 16:45 Review of Systems Review of Systems: All systems reviewed & are unremarkable except as noted in HPI and below PMFSH Past Medical History Medical History BRBPR (bright red blood per rectum) GERD (gastroesophageal reflux disease) Hypertension Obesity (BMI 30-39.9) Family History Family History Grandparent Hypertension Family history of heart disease in male family member before age 55 Mother Hypertension Family history of diabetes mellitus in first degree relative Father Family history of diabetes mellitus in first degree relative Social History Social History Smoking status: Never smoker Alcohol intake: never Living arrangements: alone Spiritual care concerns: No Exam Narrative: APPEARANCE: Well appearing, no pain, no distress, well-nourished. HEAD: normocephalic, atraumatic. EYES: PERRLA/EOMI, conjunctivae clear. NOSE: Normal no drainage EARS:TMS clear with good light reflex. THROAT: Pharynx clear, no exudate. NECK: Supple. No adenopathy, no masses. RESPIRATORY: Airway patent, respirations nonlabored. Clear to auscultation bilaterally, no rales, rhonchi, wheezing. CARDIOVASCULAR: Regular rate and rhythm without murmurs rubs or gallops. ABDOMINAL: Soft, nontender, nondistended, normal bowel sounds MUSCULOSKELETAL: Moves all extremities. Strength/ROM intact, No edema, No calf tenderness. NEURO: Alert. Cranial nerves II through XII intact. Grossly intact. Normal forward and backward tandem gait, negative Romberg Course Vital Signs Vital signs: Vital Signs Pulse Rate 69 02/19/25 15:44 Respiratory Rate 17 02/19/25 15:44 Blood Pressure 166/88 H 02/19/25 15:44 Pulse Oximetry 100 02/19/25 15:44 Temperature 98.7 F 02/19/25 16:46 Pulse Rate 62 02/19/25 18:01 Respiratory Rate 18 02/19/25 18:01 Blood Pressure 157/89 H 02/19/25 18:01 Pulse Oximetry 97 02/19/25 18:01 Oxygen Delivery Room Air 02/19/25 16:42 MDM - Neuro Symptoms/Deficit MDM Narrative Medical decision making narrative: 62-year-old male presents to the emergency department for evaluation for episode of vertigo. Patient is currently afebrile with no leukocytosis and hemoglobin of 14.8. Patient has an INR of 1.1. No acute abnormalities on the patient's CMP. Patient's troponin was negative. Head CT was negative for acute intracranial abnormality and chest x-ray was negative for acute cardiopulmonary abnormality. On re-evaluation patient states he is still symptom free. Patient was able to ambulate in the emergency department with out issues. All questions concerns were addressed patient was comfortable plan for discharge and close follow-up. Differential Diagnosis Differential diagnosis: Likely other (Vertigo, TIA, CVA, orthostatic hypotension) Lab Data 02/19/25 16:14 02/19/25 16:14 Labs: Lab Results 02/19/25 02/19/25 02/19/25 Range/Units 16:06 16:14 16:39 WBC 9.3 (4.5-10.0) K/mm3 RBC 5.05 (4.6-6.20) M/mm3 Hgb 14.8 (14.0-18.0) g/dL Hct 44.4 (42.0-52.0) % MCV 87.9 (80-100) fl MCH 29.3 (26-34) pg MCHC 33.3 (32-36) g/dl RDW 13.5 (11.5-14.5) % Plt Count 256 (150-375) k/mm3 MPV 10.2 (7.4-10.4) fl Immature Gran % (Auto) 0.3 (0-0.5) % Neut % (Auto) 65.6 (45.5-73.1) % Lymph % (Auto) 21.0 (18.3-44.2) % Petroleum % (Auto) 8.1 (2.6-8.5) % Eos % (Auto) 4.4 (0-4.4) % Baso % (Auto) 0.6 (0.2-1.2) % Lymph # (Auto) 1.95 (0.9-3.2) K/mm3 Petroleum # (Auto) 0.8 H (0.1-0.6) K/mm3 Eos # (Auto) 0.4 H (0-0.3) K/mm3 Baso # (Auto) 0.1 (0.0-0.1) K/mm3 Abs Immat Gran (auto) 0.03 (0.00-0.031) K/mm3 Absolute Neuts (auto) 6.1 (1.3-6.7) K/mm3 Absolute Nucleated RBC 0.000 (0.0-0.012) K/mm3 Nucleated RBC % 0.0 (0.0-0.2) % PT 14.5 (11.1-14.7) Seconds INR 1.1 APTT 29.3 (22.3-36.8) Seconds Sodium 141 (137-145) mmol/L Potassium 3.5 (3.4-5.0) mmol/L Chloride 107 (98-107) mmol/L Carbon Dioxide 24 (22-30) mmol/L Anion Gap 10 (4-12) mmol/L BUN 29 H (9-20) mg/dL Creatinine 1.26 (0.7-1.3) mg/dL Estim Creat Clear Calc Not Reportable Estimated GFR 58 L (59 - ) Glucose 105 (65-110) mg/dL POC Capillary Glucose 106 H 99 (65-105) mg/dl Calcium 9.2 (8.4-10.2) mg/dL Total Bilirubin 0.4 (0.2-1.3) mg/dL AST 42 (17-59) U/L ALT 29 (6-50) U/L Alkaline Phosphatase 46 (38-126) U/L Troponin I < 0.012 (0.000-0.034) ng/mL Total Protein 7.7 (6.3-8.2) g/dL Albumin 4.5 (3.5-5.1) g/dL Discharge Plan Discharge Clinical Impression: Vertigo Patient Disposition: Home Condition: Stable Instructions: Antibiotic Form, Vertigo (ED) Additional Instructions: Have close follow-up with her primary care physician. If you have any worsening symptoms then please call or return to the emergency department. Patient Language: Irish Prescriptions: No Action triamcinolone acetonide 0.1 % cream 1 applic topical BID 7 Days Qty: 30 0RF doxycycline monohydrate 100 mg capsule 100 mg PO BID 7 Days Qty: 14 0RF sertraline 100 mg tablet 200 mg PO DAILY valsartan 320 mg tablet 320 mg PO DAILY aspirin 81 mg tablet,chewable 81 mg PO DAILY metformin 500 mg tablet extended release 24 hr 500 mg PO DAILY fenofibrate 160 mg tablet 160 mg PO DAILY liraglutide [Victoza 3-Fred] 0.6 mg/0.1 mL (18 mg/3 mL) pen injector 0.6 mg SUBCUT DAILY fluticasone propionate [Flovent HFA] 220 mcg/actuation HFA aerosol inhaler 1 puff inhalation BID 30 Days Qty: 12 3RF Rx Instructions: Take as directed bupropion HCl 150 mg tablet sustained-release 12 hr 150 mg PO BID amlodipine 5 mg tablet 5 mg PO DAILY Qty: 90 2RF atorvastatin [Lipitor] 80 mg tablet 80 mg PO DAILY Qty: 90 2RF Follow-up/Referrals: Flora,KATLIN Jain [Primary Care Provider, Family Practice]
--- OUTSIDE RECORDS SUMMARY | 2025-02-19 17:30 | XMS_ITS | Encounter Summary ---
Author Organization [facility] [place] [facility] Address [address] [facility] [address] [place] [address] Phone Care Team Providers Care Director Of Materials Management Name Role Phone Joaquina Hines PA-C Primary Care Provider [phone] Reason for Visit * Reason Comments Med Refill Encounter Details Date Type Department Care Team (Late st Contact Info) Description 08/05/2023 Refill [place] [employer], [facility] [address] [place] [address] Neri Graff DO [address] [facility] [address] [place] [address] Social History Tobacco Use Types Packs/Day Years Used Date Smoking Tobacco: Never Assessed Sex and Gender Information Value Date Recorded Sex Assigned at Not on file Legal Sex Male 11:41 AM EST Gender Identity Not on file Sexual Orientation Not on file documented as of this encounter Plan of Treatment Upcoming Encounters Date Type Department Care Team (Late st Contact Info) Description 04/19/2025 2:45 PM PADDER CUSHION Office Visit [place] [employer] [facility] [address] [place] [address] Neri Graff DO [address] [facility] [address] [place] [address] documented as of this encounter Visit Diagnoses Not on filedocumented in this encounter Care Teams Director Of Materials Management Relationship Specialty Start Date End Date Joaquina Hines PA-C [address] [place] [address] PCP - General Physician Livestock Counter 12/31/22 documented as of this encounter
--- OUTSIDE RECORDS SUMMARY | 2025-02-19 17:30 | XMS_ITS | Clinical Summary ---
Author Organization [facility] Facility Address [address] [place] [address] Care Team Providers Care Wireless Communications Engineer Name Role Phone Joaquina Hines PA-C Primary Care Provider Medications ergocalciferol 1.25 MG (76095 UT) capsule TAKE 1 CAPSULE (50,000 UNITS TOTAL) BY MOUTH ONCE WEEKLY 4 capsule 5 07/10/2022 Active spironolactone (ALDACTONE) 25 MG tablet TAKE ONE-HALF TABLET BY MOUTH EVERY MORNING 45 tablet 1 06/03/2023 Active Encounters Date Type Department Care Team Description 12/28/2024 Documentation Only [facility], [address] [address] Neri Graff, DO from Last 3 Months [...] 172.7 cm (5' 8) 06/25/2022 3:13 PM BUGGY MAN Body Mass Index 36.04 06/25/2022 3:13 PM BUGGY MAN Plan of Treatment Upcoming Encounters Date Type Department Care Team (Late st Contact Info) Description 04/19/2025 2:45 PM BUGGY MAN Office Visit [facility], [facility] [address] [place] [address] Neri Graff DO [address] [place] [address] Health Maintenance Due Date Last Done Comments [...] Most Recently Relevant to Health Maintenance Insurance [facility] ([id number]) Care Teams Wireless Communications Engineer Relationship Specialty Start Date End Date Joaquina Hines PA-C [facility] [address] PCP - General Physician Operator Cavity Pump 12/31/22
--- OUTSIDE RECORDS SUMMARY | 2025-02-19 17:31 | XMS_ITS | Clinical Summary ---
Author Organization [facility] Address [facility] [place] [address] Care Team Providers Care Oil Pumper Name Role Phone Joaquina Hines PA-C Primary Care Provider [phone] Allergies No known active allergies Medications metFORMIN 1000 MG tablet Take 1,000 mg by mouth every evening. Active latanoprost 0.005 % ophthalmic solution 1 drop nightly at bedtime. Active sertraline 100 MG tablet Take 200 mg by mouth daily. Active duloxetine 20 MG capsule Take 20 mg by mouth daily. Active busPIRone 30 MG tablet Take 30 mg by mouth every evening. Active rosuvastatin 40 MG tablet Take 40 mg by mouth daily. Active ezetimibe 10 MG tablet Take 10 mg by mouth daily. Active albuterol sulfate HFA (VENTOLIN HFA) 108 (90 Base) MCG/ACT inhaler Inhale 1-2 puffs into the lungs. 01/20/2017 Active buPROPion 24 hr 300 MG 24 hr tablet Take 1 tablet by mouth daily. 09/05/2016 Active fenofibrate 160 MG tablet Take 1 tablet by mouth daily. 04/15/2017 Active fexofenadine 180 MG tablet Take 1 tablet by mouth daily. 01/20/2017 Active zolpidem 10 MG tablet Take 1 tablet by mouth nightly as needed. 08/13/2016 Active lisinopril-hydr ochlorothiazide 20-25 MG tabletIndicatio ns:Hypertension Take 1 tablet by mouth daily. 30 tablet 4 04/15/2018 Active Active Problems Problem Noted Date Diagnosed Date Weakness 04/18/2018 Encounters Date Type Department Care Team Description 01/19/2025 8:25 PM CDT - 01/19/2025 11:59 PM CDT Hospital Encounter [facility] [address] [place] [address] Phani Dooley MD Obstructive Sleep Apnea (CENTRAL SLEEP APNEA) Discharge Disposition: Home or Self Care (Routine Discharge) 01/19/2025 Travel 01/05/2025 Transcribe Orders [facility] [address] [address] [place] [address] Phani Dooley MD from Last 3 Months Immunizations Immunization Administration Dates Next Due Fluarix (IIV4) 04/19/2018 Family History Medical History Relation Comments Diabetes Father no longer on tx Hypertension Father TIA Father CHF Mother COPD Mother Diabetes Mother no longer on tx Heart Disease Mother Hypertension Mother Relation Status Comments Father Mother Social History Tobacco Use Types Packs/Day Years Used Date Smoking Tobacco: Never Smokeless Tobacco: Never Alcohol Use Standard Drinks/Week Comments Yes 0 (1 standard drink = 0.6 oz pur e alcohol) AUDIT-C Answer Date Recorded Frequency of Alcohol Consumption Monthly or less 04/18/2018 Average Number of Drinks 1 or 2 018 Frequency of Binge Drinking Never 04/02 Sex and Gender Information Value Date Recorded Sex Assigned at Not on file Legal Sex Male 7:09 PM CDT Gender Identity Not on file Sexual Orientation Not on file Last Filed Vital Signs Vital Sign Reading Time Taken Comments Blood Pressure 128/79 04/20/2018 4:00 AM BUSINESS EMPLOYMENT SPECIALIST Pulse 66 04/20/2018 4:00 AM BUSINESS EMPLOYMENT SPECIALIST Temperature 36.3 C (97.4 F) 04/20/2018 4:00 AM BUSINESS EMPLOYMENT SPECIALIST Respiratory Rate 20 04/20/2018 4:00 AM BUSINESS EMPLOYMENT SPECIALIST Oxygen Saturation 99% 04/20/2018 4:00 AM BUSINESS EMPLOYMENT SPECIALIST Inhaled Oxygen Concentration - - Weight 111.7 kg (246 lb 4.1 oz) 04/20/2018 5:00 AM BUSINESS EMPLOYMENT SPECIALIST Height 175.3 cm (5' 9) 04/18/2018 5:16 PM BUSINESS EMPLOYMENT SPECIALIST Body Mass Index 36.37 04/18/2018 5:16 PM BUSINESS EMPLOYMENT SPECIALIST Plan of Treatment Health Maintenance Due Date Last Done Comments Colorectal Cancer Screening Colonoscopy (10 Years) 1960 Annual Physical 1965 Pneumococcal Vaccine: 50+ Years (2 of 2 - PCV) 04/10/2021 04/10/2020 COVID-19 Vaccine (4 - 2024-2 6 season) 2025 06/22/2021, 09/28/2020, 08/17/2020 DTaP, Tdap and Td Vaccines ( 2 - Td or Tdap) 03/04/2032 03/04/2022 RSV Immunization or 60+ Years (1 - 1-dose 75+ series) 2037 Hepatitis C Completed 04/15/2017, 04/15/2017 Zoster Vaccines Completed 12/24/2022, 03/05/2022 Meningococcal B Vaccine Aged Out No l onger eligible based on patient's age to complete this topic Meningococcal Vaccine Aged Out No pavan elaina eligible based on patient's age to complete this topic RSV Immunizations Under 20 Months Aged Out No longer eligible b ased on patient's age to complete this topic Procedures Procedure Name Priority Date/Time Associated Diagnosis Comments POLYSOMNOGRAPHY 4 OR MORE PARAMETERS WITH CPAP Routine 01/19/2025 8:30 PM CDT SULLY (obstructive sleep apnea) Other complications of procedures, not elsewhere classified, initial encounter Central sleep apnea in conditions classified elsewhere HEPATITIS PANEL,ACUTE Routine 04/15/2017 11:33 AM BUSINESS EMPLOYMENT SPECIALIST from Last 3 Months or Most Recently Relevant to Health Maintenance Results * PSG with CPAP/BIPAP (18837) (01/19/2025 8:30 PM CDT) Narrative [facility] - 01/19/2025 8:30 PM CDT Trace Cedillo MD 01/28/2025 11:17 AM [place], [place] CPAP/BILEVEL TITRATION STUDY INTERPRETATION PATIENT NAME: VLADIMIR BOYD DATE OF : 1960 DATE OF SERVICE: 01/19/2025 PATIENT TYPE: CLI Ordering Phy Exam Description Soumya Jeronimo M.D. PSG 4+PARAMETERS W/CPAP ATTENDING PHYSICIAN: Trace Cedillo M.D. REFERRING PHYSICIAN: Soumya Jeronimo M.D GENERAL INFORMATION Total Sleep Time: 300.0 minutes Sleep Efficiency Index: 68.9% Sleep Latency: 14.6 minutes REM Latency: 0.0 minutes Post Respiratory Disturbance Index: 4.0 per hour on BIPAP S/T of 18 cm/14 cm h2O Post Apnea-Hypopnea Index: 2.0 per hour on BIPAP S/T of 18 cm/14 cm h2O Procedure: The overnight polysomnogram was an attended study using a multiple channel system including simultaneous monitoring and recording of electroencephalography (EEG), right and left electrooculography (EOC), submental electromyography (EOG), submental electromyography (EMG), EKG, oral/nasal airflow, snoring, respiratory effort, oxygen saturations, right and left anterior tibialis electromyography, and body position. Sleep Architecture: The patient underwent CPAP titration and slept for a total of 300.0 minutes during 435.4 minutes of recording time. Latency to persistent sleep was 14.6 minutes with sleep efficiency of 68.9% and a REM latency of - minutes. Patient spent 17.3% (52.0 minutes) in stage N1, 82.7% (248.0 minutes) in stage N2, 0.0% (0.0 minutes) in Stage N3, 0.0% (0.0 minutes) in REM. The patient slept 49.0% of the time in supine position, 0.0% of the time in prone position, 48.0% of the time in left-sided position, and 3.0% of the time in right-sided position. There were 96 arousals, of which 36 were associated with respiratory events and 60 were spontaneous. Arousal index was 19.2 per hour. Limb Activity Summary: The patient demonstrated a total of - leg movements during the night, of which - had the appearance of periodic limb movements. There were a total of - arousals associated with leg movements for an arousal index with leg movements of - per hour. The periodic limb movement index was - per hour. Cardiac Events Summary: The average heart rate was 56.8 beats per minute. Bradycardia, PACs and PVCs were noted during this study. Respiratory Events Summary: There were a total of 61 apneas and hypopneas, of which 16 were apneas. Of those apneas, 1 were Obstructive, 15 were Central and - were Mixed. There were an additional 13 respiratory event-related arousals. Oxygen Saturation Summary: Patient's average saturation was - during REM and 93.1% during NREM. The patient's lowest saturation was - during REM and 86.0% during NREM. Saturation was 90% or higher for 97.3% of the total sleep time. Saturation was less than 88% for 0.1% of the total sleep time or 1.6 minutes. CPAP/BiLevel Therapy Summary: The patient underwent CPAP titration starting at 14/10/0 cm H2O, up to a maximum of 16/12 cm H2O, however, patient began to have central apneas so a backup rate was then added and titrated up to 18/14 cm H2O with a backup rate of 14. The patient slept for 90.5 minutes while on the optimal pressure of 18/14 cm H2O with a backup rate of 14 with an AHI of 2.0 per hour, arousal index of 11.9 per hour and minimum oxygen saturation of 89.0%. Assessment/Plan: This patient was fully titrated in the allotted time during this study. I recommend initiation of BIPAP S/T at home set at 18.0 cm/14.0 cm h2O with a backup rate of 14 and heated humidity. A one month follow up should be scheduled with the ordering physician to assess efficacy and tolerance of this therapy. If respiratory events persist, further adjustments or further evaluation may be warranted as clinically indicated. Bradycardia and rare PACs and PVCs were noted during this study. Given that the patient's past medical history was not available during interpretation of this study, clinical correlation of this issue may be indicated based upon this patient's underlying medical conditions. This patient should maintain good sleep hygiene techniques, maintain a consistent sleep/wake schedule with adequate hours of sleep, and avoid hazardous activities when sleepy. The patient should be cautioned about factors that may potentially exacerbate snoring and sleep-related problems, such as HEAVY TRUCK TECHNICIAN depressants, especially at bedtime. This document was electronically signed by: Trace Cedillo M.D. on 01/27/2025 at 4:44 PM. us Phani Dooley MD SLE[facility]ENTER ORDERABLES Final Re sult [facility] [address] [place] [address], [place] [phone] * HEPATITIS PANEL,ACUTE (04/15/2017 11:33 AM BUSINESS EMPLOYMENT SPECIALIST) HAV IGM NON-REACTI VE NR [facility] TO EPIC CONVERSION HEPATITIS B SURFACE AG NON-REACTI VE NR [employer] TO EPIC CONVERSION HEP B CORE IGM NON-REACTI VE NR [employer] TO EPIC CONVERSION HEPATITIS C AB NON-REACTI VE NR [employer] TO EPIC CONVERSION 04/15/2017 11:3 3 AM BUSINESS EMPLOYMENT SPECIALIST 04/15/2017 11:33 AM BUSINESS EMPLOYMENT SPECIALIST Narrative [employer] TO EPIC CONVERSION - 04/15/2017 2:08 PM BUSINESS EMPLOYMENT SPECIALIST [id number] 10:37AM by Tg Floyd: Routine lab work discussed with Pt. Vitamin D is low, pt states he will take vitamin D over the counter. A1C is 6.9 and Triglycerides are elevated, pt is working on his diet and has seen interactive developer at [facility]. All other labs witin normal limits. Result Communication: Discussed results with patient Tg [facility] Final Result [facility] TO EPIC CONVERSION from Last 3 Months or Most Recently Relevant to Health Maintenance Insurance [facility] Advance Directives Documents on File Type Date Recorded Patient Manager Infrastructure Expl anation Advance Directives and Living Will 04/20/2018 7:39 AM signed 04-19-18 * Full Code (Latest Code Status on File) Date Activated Date Inactivated Comments 04/18/2018 10:24 PM 04/20/2018 12:55 PM Care Teams Oil Pumper Relationship Specialty Start Date End Date Joaquina Hines PA-C [address] [place] [address] PCP - General 01/19/25
== END 2025-02-19 18:25 | disposition home or self-care (01) ==
PROVIDERS: Emergency Medicine; Emergency Provider Emergency Medicine; PCP Physician Assistant
DX: R42 Dizziness and giddiness (principal); E11.22 Type 2 diabetes mellitus with diabetic chronic kidney disease; I12.9 Hypertensive chronic kidney disease with stage 1 through stage 4 chronic kidney disease, or unspecified chronic kidney disease; N18.9 Chronic kidney disease, unspecified; E78.00 Pure hypercholesterolemia, unspecified; K21.9 Gastro-esophageal reflux disease without esophagitis; Z79.84 Long term (current) use of oral hypoglycemic drugs; Z79.899 Other long term (current) drug therapy; Z79.82 Long term (current) use of aspirin
CPT/HCPCS: 36415; 70450; 71045; 80053; 82948; 84484; 85025; 85610; 85730; 93005; 99284